=== PATIENT | female | born 1995 | race Caucasian/White ===

== ENCOUNTER → 2017-04-12 | Outpatient (CLI) | payer MEDICAID ==
[2017-04-12 10:47] LABS: CH 31.1; CHCM 32.8; HCT 40.8 % (34.0-46.0); HDW 2.03; HGB 13.3 gm/dL (11.4-16.0); MCHC 32.6 g/dL (31.0-37.0); Mean Platelet Volume 6.8; RDW 11.9 % (11.5-15.5); WBC 10.3 k/uL (3.8-10.6)
[2017-04-12 10:54] LABS: Glucose 76 mg/dL (74-99); Non-African American GFR(MDRD) >60 (>60 ml/min/1.73 sqM)
[2017-04-12 16:34] LABS: Treponemal Ab Non-Reactive (Non-Reactive)
[2017-04-13 08:05] LABS: Toxoplasma Antibody (IgG) 50.9 IU/mL (<7.2)
== END | disposition home or self-care (01) ==
LOC: LABWHC1 10:13
PROVIDERS: ATTEND Obstetrics & Gynecology
DX: O26.811 Pregnancy related exhaustion and fatigue, first trimester (principal); Z3A.00 Weeks of gestation of pregnancy not specified
CPT/HCPCS: 36415; 82565; 82947; 85027; 86762; 86777; 86778; 86780; 86850; 86900; 86901; 87340; 87390

== ENCOUNTER 2017-07-07 15:00 | Outpatient (CLI) | payer MEDICAID ==
[2017-07-07 15:56] VITALS: BP 165/86; PULSE 89; RESP 16; TEMP 98.3
--- NOTE | 2017-07-14 03:09 | P.MSEPDOC ---
Presenting Problems - Arrival Data Date of Arrival on Unit: 07/07/17 Time of Arrival on Unit: 15:00 Mode of Transport: Ambulatory - Complaint OB-Reason for Admission/Chief Complaint: Elevated Blood Pressure Comment: Pt has hx of chronic htn and is on labatalol 100mg Medical History - Information : 1 Para: 0 Term: 0 : 0 Abortions: Spontaneous or Elective: 0 Number of Living Children: 0 - Gestational Age Gestational Age by ERIK (wks/days): 21 Weeks and 2 Days - History Complications: Chronic HTN Review of Systems - Review of Systems Constitutional: No problems Breast: No problems ENT: Sore throat, Cough, Nasal congestion Cardiovascular: No problems Respiratory: No problems Gastrointestinal: No problems Genitourinary: No problems Musculoskeletal: No problems Neurological: No problems Skin: No problems Vital Signs - Temperature Temperature: 98.3 F Temperature Source: Oral - Pulse Right Sitting Pulse Rate: 89 Pulse Assessment Method: Automatic Cuff - Respirations Respiratory Rate: 16 Oxygen Delivery Method: Room Air O2 Sat by Pulse Oximetry: 100 - Blood Pressure Right Arm Blood Pressure: 165/86 Blood Pressure Mean: 112 Medical Screen Scoring (Pre) - Cervical Exam Dilation: Exam Deferred Effacement: Exam Deferred - Uterine Contractions Frequency: N/A Duration: N/A Intensity: N/A - Maternal Vital Signs Maternal Temperature: N/A Maternal Blood Pressure: N/A Signs of Preeclampsia: N/A Maternal Respirations: N/A - Pain Assessment Pain Scale Used: Numeric (1 - 10) Pain Intensity: 0 Pain Behavior: None Exhibited - Assessment Baseline FHR: 145 - Total Score Total Score (Pre): 0 - Level of Risk Level of Risk: Low (0-5) Physician Notification (Pre) - Physician Notified Physician Notified Date: 07/07/17 Physician Notified Time: 15:33 Physician/Practitioner Notifed:: Gelacio Vargas Order Received: Yes (D/c home) Disposition - Disposition OB Disposition: Discharge to home Discharge Date: 07/07/17 Discharge Time: 15:45 I agree with the RN Medical Screening Exam: Yes Risk & Benefit of care provided described in d/c instruction: Yes Diagnosis: UNSPECIFIED MATERNAL HYPERTENSION, SECOND TRIMESTER
== END 2017-07-07 15:45 | disposition home or self-care (01) ==
LOC: FBPOP 15:00
PROVIDERS: ATTEND Obstetrics & Gynecology
DX: O16.2 Unspecified maternal hypertension, second trimester (principal); Z3A.21 21 weeks gestation of pregnancy
CPT/HCPCS: 99213

== ENCOUNTER 2017-10-29 16:03 | Inpatient (IN) | payer MEDICAID ==
[2017-10-29] MEDS ORDERED: TERBUTALINE 1 MG/ML VIAL SQ PRN (16:11)
[2017-10-29] MEDS ORDERED: OXYTOCIN 10 UNIT/ML 1 ML VIAL IM PRN (16:11)
[2017-10-29] MEDS ORDERED: METHYLERGONOVINE 0.2 MG/ML 1 ML AMP IM PRN (16:11)
[2017-10-29] MEDS ORDERED: CARBOPROST TROMETHAMINE 250 MCG/ML 1 ML AMP IM PRN (16:11)
[2017-10-29] MEDS ORDERED: LIDOCAINE 1% (PF) 10 MG/ML (30 ML SDV) SQ PRN (16:11)
[2017-10-29] MEDS ORDERED: DINOPROSTONE 10 MG INSERT.ER VAGINAL ONE (16:13)
[2017-10-29 16:40] VITALS: BMI 28.4
[2017-10-30] MEDS ORDERED: AMPICILLIN 2,000 MG in SODIUM CHLORIDE 0.9% 100 ML IVPB ONE (06:00)
[2017-10-30] MEDS: LACTATED RINGERS 1,000 ML IV SCH ×4 (06:17→19:44)
[2017-10-30] MEDS: OXYTOCIN 20 UNITS/1000 ML NS 1,000 ML IV SCH ×2 (06:18→19:45)
[2017-10-30 06:21] LABS: Basophils % (A) 0 %; Eosinophils # (A) 0.1 k/uL (0-0.7); Eosinophils % (A) 1 %; HCT 41.2 % (34.0-46.0); HGB 14.2 gm/dL (11.4-16.0); Lymphocytes # (A) 2.3 k/uL (1.0-4.8); Lymphocytes % (A) 13 %; MCH 31.3 pg (25.0-35.0); MCHC 34.5 g/dL (31.0-37.0); MCV 90.7 fL (80.0-100.0); Mean Platelet Volume 6.9; Monocytes # (A) 0.7 k/uL (0-1.0); Monocytes % (A) 4 %; Neutrophils # (A) 14.7 k/uL (1.3-7.7); Neutrophils % (A) 81 %; Platelet Count 273 k/uL (150-450); RBC 4.55 m/uL (3.80-5.40); RDW 12.7 % (11.5-15.5); WBC 18.1 k/uL (3.8-10.6)
[2017-10-30 06:37] LABS: INR 0.9 (<1.2); Partial Thromboplastin Time 22.4 sec (22.0-30.0); Prothrombin Time 9.3 sec (9.0-12.0)
--- NOTE | 2017-10-30 08:53 | P.HPOB ---
History of Present Illness H&P Date: 10/30/17 Chief Complaint: Intrauterine at 37 weeks with hypertension Patient is a 21-year-old at 37-1/2 weeks gestation who ryes for induction of labor due to hypertension. She's been followed with maternal medicine throughout the gestation and their recommendation was to deliver her between 37 and 38 weeks. She was therefore admitted last night for Cervidil ripening and will plan induction today with Pitocin augmentation. Artificial rupture membranes was performed clear fluid is noted. heart tones are 130s to 140s and are reactive. Questions are answered for in detail and did include risk of failure of induction and potential need for section. Her Precis course was,. By hypertension which she is had now for apparently a couple of years without any specific cause. She's been managed on labetalol and her blood pressure up until yesterday had been stable and normal. However yesterday she did have an elevated blood pressures in the office. Plan was to always deliver her between 37 and 38 weeks however therefore she is admitted for same. Assessment intrauterine at term. Hypertension. Plan induction of labor following cervical ripening. She was currently dilated to 1-2 cm and 80% effaced Past Medical History Past Medical History: Hypertension Additional Past Medical History / Comment(s): nymph node in neck removed, non- cancerous History of Any Multi-Drug Resistant Organisms: None Reported Additional Past Surgical History / Comment(s): nymph node in neck removed, non- cancerous Past Anesthesia/Blood Transfusion Reactions: No Reported Reaction Past Psychological History: No Psychological Hx Reported Smoking Status: Never smoker Past Drug Use History: None Reported - Past Family History Mother Family Medical History: Hypertension Medications and Allergies Home Medications Medication Instructions Recorded Confirmed Type Labetalol [Trandate] 100 mg PO BID 07/07/17 10/29/17 History Allergies Allergy/AdvReac Type Severity Reaction Status Date / Time No Known Allergies Allergy Verified 07/07/17 15:01 Exam Osteopathic Statement: *. No significant issues noted on an osteopathic structural exam other than those noted in the History and Physical/Consult. - Vital Signs Vital signs: Vital Signs Temp Pulse Resp BP 10/29/17 16:30 99 F 98 16 141/92 Intake and Output 10/29/17 10/30/17 10/30/17 22:59 06:59 14:59 Intake Total 1200 600 Balance 1200 600 Intake: Oral 1200 600 Other: # Voids 3 2 Weight 89.811 kg - OBG Physical Exam Breast: both: normal (no masses) Abdomen: bowel sounds normal, no diffuse tenderness, no bruit present, no guarding noted, no hepatomegaly, no splenomegaly, no mass Vulva: both: normal Vagina: normal moisture, no discharge Cervix: no lesion, no discharge Uterus: normal size, normal contour Adnexa: both: normal Anus/Rectum: normal perianal skin, no rectal mass, no hemorrhoids, heme negative Results Result Diagrams: 10/30/17 06:10 Abnormal Lab Results - Last 24 Hours (Table) 10/30/17 Range/Units 06:10 WBC 18.1 H (3.8-10.6) k/uL Neutrophils # 14.7 H (1.3-7.7) k/uL
[2017-10-30] MEDS: AMPICILLIN 1,000 MG in SODIUM CHLORIDE 0.9% 50 ML IVPB SCH ×3 (11:30→19:52)
[2017-10-30] MEDS ORDERED: BUPIVACAINE (PF) 0.25% 30 ML VIAL ONE (11:38)
[2017-10-30] MEDS ORDERED: SODIUM CHLORIDE 0.9% 100 ML BAG ONE (11:38)
[2017-10-30] MEDS ORDERED: fentaNYL (PF) 50 MCG/ML 5 ML AMP ONE (11:38)
[2017-10-30] MEDS ORDERED: BUPIVACAINE (PF) 0.25% 25 ML, fentaNYL (PF) 200 MCG in SODIUM CHLORIDE 0.9% 71 ML EPIDURAL ONE (11:54)
[2017-10-30] MEDS: LABETALOL 100 MG TAB PO SCH ×2 (12:04→20:00)
--- NOTE | 2017-10-30 18:56 | P.PROBDLV ---
Vaginal Delivery Note - . Vaginal Delivery Note: Patient progressed to complete and pushing with spontaneous vaginal delivery of a viable male over an intact perineum. Following delivery of the head there was noted and retraction of the head onto the perineum baby was left occiput anterior position at this point gentle downward traction was attempted baby did not release the anterior shoulder therefore patient's placement very deep Madelyn position and a second attempt was made no significant change was noted during the attempt at delivering the anterior shoulder therefore I did take my left hand into posterior vagina and was able to grasp underneath the posterior shoulders axilla and while rotating in a clockwise fashion and was able to move the baby to essentially a our OT or ROP position allowing the anterior shoulder to release underneath the pubic bone and deliver transversely through the vagina without difficulty. Once baby was delivered mouth and nares were bulb suctioned and baby was placed on mother's abdomen where the umbilical cord was clamped and cut in usual fashion an nursery personnel was present to assume care. Placenta was then delivered intact and Pitocin was added to the IV. scores were 7 and 9 at one and 5 minutes respectively and the weight was 7 lbs. 12 oz. Both mother and baby are currently stable following delivery.
[2017-10-30] MEDS ORDERED: HYDROCORTISONE 2.5% RECTAL CREAM 30 GM TUBE RECTAL PRN (19:03)
[2017-10-30] MEDS ORDERED: LANOLIN CREAM 5 GM TUBE TOPICAL PRN (19:03)
[2017-10-30] MEDS ORDERED: diphenhydrAMINE 50 MG CAP PO PRN (19:03)
[2017-10-30] MEDS ORDERED: ZOLPIDEM 5 MG TAB PO PRN (19:03)
[2017-10-30] MEDS ORDERED: ACETAMINOPHEN TAB 325 MG TAB PO PRN (19:03)
[2017-10-30] MEDS ORDERED: diphenhydrAMINE 50 MG/ML 1 ML VIAL IVP PRN ×2 (19:03)
[2017-10-30] MEDS ORDERED: SIMETHICONE 80 MG CHEWABLE PO PRN (19:03)
[2017-10-30] MEDS ORDERED: MEASLES-MUMPS-RUBELLA VACC/PF 12,500 UNIT/0.5 ML VIAL SQ ONE (19:03)
[2017-10-30] MEDS ORDERED: diphenhydrAMINE 25 MG CAP PO PRN (19:03)
[2017-10-30] MEDS: BENZOCAINE/MENTHOL SPRAY 1 GM/SPRAY AEROSOL TOPICAL PRN (19:43)
[2017-10-30] MEDS: WITCH HAZEL 1 EACH MED..PAD TOPICAL PRN (19:43)
[2017-10-30] MEDS: SENNOSIDES-DOCUSATE SODIUM 1 EACH TAB PO SCH (19:58)
[2017-10-30] MEDS: IBUPROFEN 600 MG TAB PO PRN (21:52)
[2017-10-31] MEDS: IBUPROFEN 600 MG TAB PO PRN ×4 (03:55→23:53)
--- NOTE | 2017-10-31 07:18 | P.DS ---
Providers Date of admission: 10/29/17 16:03 Expected date of discharge: 10/31/17 Attending physician: Preet Peters Primary care physician: [facility] Course: Aleah is doing very well day 1. She is ambulating, voiding, and she is tolerating her diet. She voices no complaints. Vital signs are stable and afebrile. Heart regular, lungs clear, extremities without pain. Abdomen is soft uterus is firm lochia is reported light. Assessment day 1. Plan discharged home follow up with me in 6 weeks. A prescription for a breast pump is also been provided. All the questions and discharge instructions are reviewed for the patient. Patient Condition at Discharge: Good Plan - Discharge Summary Discharge Rx Participant: No New Discharge Prescriptions: No Action Labetalol [Trandate] 100 mg PO BID Discharge Medication List Labetalol [Trandate] 100 mg PO BID 07/07/17 [History] Follow up Appointment(s)/Referral(s): Preet Peters DO [Doctor of Osteopathic Medicine] - 1 Week Activity/Diet/Wound Care/Special Instructions: No heavy lifting, limit stairs and driving and pelvic rest. If any high temperatures, heavy bleeding, or severe pain call my office Discharge Disposition: HOME SELF-CARE
[2017-10-31 07:32] LABS: Basophils % (A) 0 %; Eosinophils # (A) 0.1 k/uL (0-0.7); Eosinophils % (A) 1 %; HCT 37.8 % (34.0-46.0); HGB 12.7 gm/dL (11.4-16.0); Lymphocytes # (A) 2.2 k/uL (1.0-4.8); Lymphocytes % (A) 12 %; MCH 31.2 pg (25.0-35.0); MCHC 33.6 g/dL (31.0-37.0); Mean Platelet Volume 7.7; Monocytes # (A) 0.8 k/uL (0-1.0); Monocytes % (A) 5 %; Neutrophils % (A) 82 %; Platelet Count 227 k/uL (150-450); RBC 4.06 m/uL (3.80-5.40); RDW 12.5 % (11.5-15.5); WBC 18.3 k/uL (3.8-10.6)
[2017-10-31] MEDS: SENNOSIDES-DOCUSATE SODIUM 1 EACH TAB PO SCH ×2 (08:51→21:17)
[2017-10-31] MEDS: LABETALOL 100 MG TAB PO SCH ×2 (08:55→21:17)
[2017-10-31] MEDS ORDERED: DIPH,PERTUS(ACELL)TETVAC-LF 0.5 ML VIAL IM ONE (17:59)
[2017-11-01] MEDS: IBUPROFEN 600 MG TAB PO PRN (06:26)
[2017-11-01] MEDS: WITCH HAZEL 1 EACH MED..PAD TOPICAL PRN (06:28)
[2017-11-01] MEDS: BENZOCAINE/MENTHOL SPRAY 1 GM/SPRAY AEROSOL TOPICAL PRN (06:28)
[2017-11-01] MEDS: LABETALOL 100 MG TAB PO SCH (08:00)
[2017-11-01] MEDS: SENNOSIDES-DOCUSATE SODIUM 1 EACH TAB PO SCH (08:00)
[2017-11-01 08:33] VITALS: BP 129/66; PULSE 77; RESP 16; TEMP 97.6
== END 2017-11-01 12:55 | disposition home or self-care (01) | DRG 775 ==
LOC: 4FBP 16:03
PROVIDERS: ADMIT Obstetrics & Gynecology; ATTEND Obstetrics & Gynecology
PROC: 3E0P7VZ Introduction of Hormone into Female Reproductive, Via Natural or Artificial Opening (ICD-10-PCS; principal; 2017-10-29)
PROC: 10E0XZZ Delivery of Products of Conception, External Approach (ICD-10-PCS; 2017-10-30)
PROC: 10907ZC Drainage of Amniotic Fluid, Therapeutic from Products of Conception, Via Natural or Artificial Opening (ICD-10-PCS; 2017-10-30)
PROC: 00HU33Z Insertion of Infusion Device into Spinal Canal, Percutaneous Approach (ICD-10-PCS; 2017-10-30)
PROC: 3E0R3NZ Introduction of Analgesics, Hypnotics, Sedatives into Spinal Canal, Percutaneous Approach (ICD-10-PCS; 2017-10-30)
DX: O16.4 Unspecified maternal hypertension, complicating childbirth (principal); Z37.0 Single live birth; Z3A.37 37 weeks gestation of pregnancy; Z79.899 Other long term (current) drug therapy; Z82.49 Family history of ischemic heart disease and other diseases of the circulatory system; S31.41XA Laceration without foreign body of vagina and vulva, initial encounter; O75.89 Other specified complications of labor and delivery
CPT/HCPCS: 85025; 85610; 85730; 88307; 90471; 90715

== ENCOUNTER 2017-11-04 20:16 | Inpatient (IN) | payer MEDICAID ==
[2017-11-04] MEDS ORDERED: SODIUM CHLORIDE 0.9% 1,000 ML IV STA ×2 (21:01)
[2017-11-04 21:23] LABS: Basophils % (A) 0 %; Eosinophils # (A) 0.3 k/uL (0-0.7); Eosinophils % (A) 3 %; HCT 38.6 % (34.0-46.0); HGB 13.4 gm/dL (11.4-16.0); Lymphocytes # (A) 2.3 k/uL (1.0-4.8); Lymphocytes % (A) 20 %; MCH 31.6 pg (25.0-35.0); MCHC 34.8 g/dL (31.0-37.0); MCV 90.9 fL (80.0-100.0); Mean Platelet Volume 7.4; Monocytes # (A) 0.6 k/uL (0-1.0); Monocytes % (A) 5 %; Neutrophils # (A) 8.3 k/uL (1.3-7.7); Neutrophils % (A) 71 %; Platelet Count 307 k/uL (150-450); RBC 4.25 m/uL (3.80-5.40); RDW 12.3 % (11.5-15.5); WBC 11.6 k/uL (3.8-10.6)
[2017-11-04 21:33] LABS: ALT 61 U/L (9-52); AST 35 U/L (14-36); Albumin 3.7 g/dL (3.5-5.0); Alkaline Phosphatase 102 U/L (38-126); Anion Gap 12 mmol/L; Blood Urea Nitrogen 11 mg/dL (7-17); Calcium 9.7 mg/dL (8.4-10.2); Carbon Dioxide 22 mmol/L (22-30); Chloride 109 mmol/L (98-107); Glucose 88 mg/dL (74-99); Magnesium 1.8 mg/dL (1.6-2.3); Potassium 3.8 mmol/L (3.5-5.1); Sodium 143 mmol/L (137-145); Total Bilirubin 0.2 mg/dL (0.2-1.3); Total Protein 6.3 g/dL (6.3-8.2)
[2017-11-04 21:42] LABS: Appearance,Urine Clear (Clear); Bilirubin,Urine Negative (Negative); Blood,Urine Moderate (Negative); Color,Urine Yellow; Glucose,Urine (UA) Trace (Negative); Ketones,Urine Negative (Negative); Leukocyte Esterase,Urine Negative (Negative); Mucus,Urine Rare /hpf; Nitrite,Urine Negative (Negative); PH, Urine 6.5 (5.0-8.0); Protein,Urine Trace (Negative); RBC,Urine 12 /hpf (0-5); Specific Gravity,Urine 1.016 (1.001-1.035); Squamous Epithelial Cell,Urine <1 /hpf (0-4); Urobilinogen,Urine <2.0 mg/dL (<2.0); WBC,Urine 2 /hpf (0-5)
[2017-11-04 21:56] LABS: Creatine Kinase MB 2.6 ng/mL (0.0-2.4)
[2017-11-04] MEDS ORDERED: LABETALOL 5 MG/ML VIAL MDV IVP STA ×2 (22:26→23:10)
--- NOTE | 2017-11-04 22:57 | ED ---
Recheck HPI - General Chief Complaint: Recheck/Abnormal Lab/Rx Stated Complaint: HTN sent by [facility] Time Seen by Provider: 11/04/17 20:51 Source: patient, RN notes reviewed Mode of arrival: ambulatory Limitations: no limitations - History of Present Illness Initial Comments: This is a 21-year-old female who is several days status post vaginal delivery of a baby boy who is here today for evaluation of high blood pressure. She had slight blood pressure pre-delivery was placed on labetalol she brought her child into the emergency department 2 nights ago to evaluate oliguria/an area. Patient does describe a very stressful time in the taking the child to [facility] the baby was subsequently released. She is here tonight with complaints of elevated blood pressure no headache dizziness blurry vision nausea vomiting sweats or other symptoms. She does admit to being very anxious and stressed out from the recent activities. She has been taking labetalol 100 mg twice a day. No other modifying factors she initially had no protein in her urine per her report. MD Complaint: other - Related Data Home Medications Medication Instructions Recorded Confirmed Labetalol [Trandate] 100 mg PO BID 07/07/17 11/04/17 Pnv No.95/Ferrous Fum/Folic AC 1 tab PO HS 11/04/17 11/04/17 [ Multivitamin Tablet] Allergies Allergy/AdvReac Type Severity Reaction Status Date / Time No Known Allergies Allergy Verified 11/04/17 20:40 Review of Systems ROS Statement: Those systems with pertinent positive or pertinent negative responses have been documented in the HPI. ROS Other: All systems not noted in ROS Statement are negative. Past Medical History Past Medical History: Hypertension Additional Past Medical History / Comment(s): nymph node in neck removed, non- cancerous , History of Any Multi-Drug Resistant Organisms: None Reported Additional Past Surgical History / Comment(s): nymph node in neck removed, non- cancerous, Past Anesthesia/Blood Transfusion Reactions: No Reported Reaction Past Psychological History: No Psychological Hx Reported Smoking Status: Never smoker Past Alcohol Use History: None Reported Past Drug Use History: None Reported - Past Family History Mother Family Medical History: Hypertension General Exam - General Exam Comments Initial Comments: This is a well-developed well-nourished awake alert oriented 3 female Limitations: no limitations General appearance: alert, anxious Head exam: Present: atraumatic, normocephalic, normal inspection Eye exam: Present: normal appearance, PERRL, EOMI. Absent: scleral icterus, conjunctival injection, periorbital swelling ENT exam: Present: normal exam, mucous membranes moist Neck exam: Present: normal inspection. Absent: tenderness, meningismus, lymphadenopathy Respiratory exam: Present: normal lung sounds bilaterally. Absent: respiratory distress, wheezes, rales, rhonchi, stridor Cardiovascular Exam: Present: regular rate, normal rhythm, normal heart sounds. Absent: systolic murmur, diastolic murmur, rubs, gallop, clicks GI/Abdominal exam: Present: soft, normal bowel sounds. Absent: distended, tenderness, guarding, rebound, rigid Extremities exam: Present: normal inspection, full ROM, normal capillary refill. Absent: tenderness, pedal edema, joint swelling, calf tenderness Back exam: Present: normal inspection Neurological exam: Present: alert, oriented X3, CN II-XII intact Psychiatric exam: Present: normal affect, normal mood Skin exam: Present: warm, dry, intact, normal color. Absent: rash Course Vital Signs 11/04/17 11/04/17 11/04/17 20:19 21:13 21:58 Temperature 98.3 F Pulse Rate 66 88 69 Respiratory 18 18 18 Rate Blood Pressure 192/109 162/108 151/89 O2 Sat by Pulse 99 98 98 Oximetry 11/04/17 11/05/17 22:26 00:31 Temperature Pulse Rate 68 64 Respiratory 18 18 Rate Blood Pressure 186/104 169/96 O2 Sat by Pulse 98 96 Oximetry Medical Decision Making - Medical Decision Making The patient's blood pressure is been labile in spite of IV medications she is on 100 mg twice a day of labetalol I did discuss the case with Dr. Peters as well as with Ezra Ba who is covering for Dr. Parul hernandez Patient will be admitted for inpatient evaluation and blood pressure control. - Lab Data Result diagrams: 11/04/17 21:08 11/04/17 21:08 Lab Results 11/04/17 11/04/17 11/04/17 Range/Units 21:08 21:08 21:08 WBC 11.6 H (3.8-10.6) k/uL RBC 4.25 (3.80-5.40) m/uL Hgb 13.4 (11.4-16.0) gm/dL Hct 38.6 (34.0-46.0) % MCV 90.9 (80.0-100.0) fL MCH 31.6 (25.0-35.0) pg MCHC 34.8 (31.0-37.0) g/dL RDW 12.3 (11.5-15.5) % Plt Count 307 (150-450) k/uL Neutrophils % 71 % Lymphocytes % 20 % Monocytes % 5 % Eosinophils % 3 % Basophils % 0 % Neutrophils # 8.3 H (1.3-7.7) k/uL Lymphocytes # 2.3 (1.0-4.8) k/uL Monocytes # 0.6 (0-1.0) k/uL Eosinophils # 0.3 (0-0.7) k/uL Basophils # 0.0 (0-0.2) k/uL Sodium 143 (137-145) mmol/L Potassium 3.8 (3.5-5.1) mmol/L Chloride 109 H (98-107) mmol/L Carbon Dioxide 22 (22-30) mmol/L Anion Gap 12 mmol/L BUN 11 (7-17) mg/dL Creatinine 0.50 L (0.52-1.04) mg/dL Est GFR (CKD-EPI)AfAm >90 (>60 ml/min/1.73 sqM) Est GFR (CKD-EPI)NonAf >90 (>60 ml/min/1.73 sqM) Glucose 88 (74-99) mg/dL Calcium 9.7 (8.4-10.2) mg/dL Magnesium 1.8 (1.6-2.3) mg/dL Total Bilirubin 0.2 (0.2-1.3) mg/dL AST 35 (14-36) U/L ALT 61 H (9-52) U/L Alkaline Phosphatase 102 (38-126) U/L Total Creatine Kinase 125 (30-135) U/L CK-MB (CK-2) 2.6 H* (0.0-2.4) ng/mL CK-MB (CK-2) Rel Index 2.1 Total Protein 6.3 (6.3-8.2) g/dL Albumin 3.7 (3.5-5.0) g/dL Urine Color Urine Appearance (Clear) Urine pH (5.0-8.0) Ur Specific Steele (1.001-1.035) Urine Protein (Negative) Urine Glucose (UA) (Negative) Urine Ketones (Negative) Urine Blood (Negative) Urine Nitrite (Negative) Urine Bilirubin (Negative) Urine Urobilinogen (<2.0) mg/dL Ur Leukocyte Esterase (Negative) Urine RBC (0-5) /hpf Urine WBC (0-5) /hpf Ur Squamous Epith Cells (0-4) /hpf Urine Mucus (None) /hpf 11/04/17 Range/Units 21:30 WBC (3.8-10.6) k/uL RBC (3.80-5.40) m/uL Hgb (11.4-16.0) gm/dL Hct (34.0-46.0) % MCV (80.0-100.0) fL MCH (25.0-35.0) pg MCHC (31.0-37.0) g/dL RDW (11.5-15.5) % Plt Count (150-450) k/uL Neutrophils % % Lymphocytes % % Monocytes % % Eosinophils % % Basophils % % Neutrophils # (1.3-7.7) k/uL Lymphocytes # (1.0-4.8) k/uL Monocytes # (0-1.0) k/uL Eosinophils # (0-0.7) k/uL Basophils # (0-0.2) k/uL Sodium (137-145) mmol/L Potassium (3.5-5.1) mmol/L Chloride (98-107) mmol/L Carbon Dioxide (22-30) mmol/L Anion Gap mmol/L BUN (7-17) mg/dL Creatinine (0.52-1.04) mg/dL Est GFR (CKD-EPI)AfAm (>60 ml/min/1.73 sqM) Est GFR (CKD-EPI)NonAf (>60 ml/min/1.73 sqM) Glucose (74-99) mg/dL Calcium (8.4-10.2) mg/dL Magnesium (1.6-2.3) mg/dL Total Bilirubin (0.2-1.3) mg/dL AST (14-36) U/L ALT (9-52) U/L Alkaline Phosphatase (38-126) U/L Total Creatine Kinase (30-135) U/L CK-MB (CK-2) (0.0-2.4) ng/mL CK-MB (CK-2) Rel Index Total Protein (6.3-8.2) g/dL Albumin (3.5-5.0) g/dL Urine Color Yellow Urine Appearance Clear (Clear) Urine pH 6.5 (5.0-8.0) Ur Specific Steele 1.016 (1.001-1.035) Urine Protein Trace H (Negative) Urine Glucose (UA) Trace H (Negative) Urine Ketones Negative (Negative) Urine Blood Moderate H (Negative) Urine Nitrite Negative (Negative) Urine Bilirubin Negative (Negative) Urine Urobilinogen <2.0 (<2.0) mg/dL Ur Leukocyte Esterase Negative (Negative) Urine RBC 12 H (0-5) /hpf Urine WBC 2 (0-5) /hpf Ur Squamous Epith Cells <1 (0-4) /hpf Urine Mucus Rare H (None) /hpf - EKG Data -: EKG Interpreted by Me EKG shows normal: sinus rhythm (Normal sinus rhythm of 72. Interval 120 QRS duration 72 QT since QTC of 364/[address]-T wave changes) Disposition Clinical Impression: Labile hypertension, Status post normal vaginal delivery Disposition: ADMITTED IP TO THIS HOSP Condition: Stable Referrals: Perry Nicole DO [Primary Care Provider] - 1-2 days
[2017-11-05] MEDS ORDERED: ACETAMINOPHEN TAB 325 MG TAB PO PRN (00:57)
[2017-11-05] MEDS ORDERED: NALOXONE 0.4 MG/ML 1 ML VIAL IV PRN (00:57)
[2017-11-05 02:02] VITALS: BMI 25.8
--- NOTE | 2017-11-05 07:58 | P.OBCN ---
History of Present Illness Consult date: 11/05/17 Requesting physician: Fang Perez Reason for consult: gestational hypertension Chief complaint: High blood pressure History of present illness: Roma is a 21-year-old female well known to me following her course and delivery last Saturday. She relates that through the weekend her son had some problems with urination and there was some complicated between she and the endless track vehicle mechanic and ultimately after bring the baby to the emergency room here the baby was sent to [facility] for evaluation. While she was at [facility] she had some breast engorgement and pain and they did check her blood pressures and were noted to be high proxy 160/100. Advised her that time to go to the [place] room [place] but she refused. Once baby was discharged I was notified by the endless track vehicle mechanic done there that she had some blood pressure problems so I did speak with her over the phone and she was advised to take her medications directed for her blood pressure and recheck her blood pressure after she got home so we could evaluate whether not some of the blood pressure issues were from anxiety or not. Her sister is an RN and checked her blood pressure home and her blood pressure home was 170/110 I was notified of this by the patient and she was sent into the emergency room. In the emergency room labs were done and see her blood pressures were done. Change in her labetalol dose has been initiated. The big concern from an obstetrical/gynecologic standpoint is that she could have superimposed preeclampsia. In reviewing labs is noted she had trace protein which would not be unusual and a slight elevation in her ALTs but this also could be simply from having the baby 5 days ago. She denies headache, no epigastric pain, and no visual changes. Deep tendon reflexes were 1+ out of 4 there is no other signs or symptoms of preeclampsia and all that remained a possibility it seems less likely after thorough evaluation. Her vital signs are now stable with only slight elevation in blood pressure. Will await medicines final recommendations with her blood pressure and likely have her see Dr. Nicole for reevaluation her blood pressures later this week. All other questions are answered for both she and her mother this time currently was seeing her this morning she is stable. Past Medical History Past Medical History: Hypertension Additional Past Medical History / Comment(s): nymph node in neck removed, non- cancerous , History of Any Multi-Drug Resistant Organisms: None Reported Additional Past Surgical History / Comment(s): nymph node in neck removed, non- cancerous, Past Anesthesia/Blood Transfusion Reactions: No Reported Reaction Past Psychological History: No Psychological Hx Reported Smoking Status: Never smoker Past Alcohol Use History: None Reported Past Drug Use History: None Reported - Past Family History Mother Family Medical History: Hypertension Medications and Allergies Home Medications Medication Instructions Recorded Confirmed Type Labetalol [Trandate] 100 mg PO BID 07/07/17 11/04/17 History Pnv No.95/Ferrous Fum/Folic AC 1 tab PO HS 11/04/17 11/04/17 History [ Multivitamin Tablet] Allergies Allergy/AdvReac Type Severity Reaction Status Date / Time No Known Allergies Allergy Verified 11/04/17 20:40 Exam Osteopathic Statement: *. No significant issues noted on an osteopathic structural exam other than those noted in the History and Physical/Consult. - Vital Signs Vital signs: Vital Signs Temp Pulse Pulse Resp BP BP Pulse Ox 11/05/17 04:13 96.7 F L 67 16 148/93 98 11/05/17 01:57 96.6 F L 67 16 138/96 98 11/05/17 00:58 98.0 F 67 18 143/71 97 11/05/17 00:31 64 18 169/96 96 11/04/17 22:26 68 18 186/104 98 11/04/17 21:58 69 18 151/89 98 11/04/17 21:13 88 18 162/108 98 11/04/17 20:19 98.3 F 66 18 192/109 99 Intake and Output 11/04/17 11/05/17 11/05/17 22:59 06:59 14:59 Other: Weight 83.325 kg 81.647 kg - OBG Physical Exam Breast: Bilateral breast engorgement is noted better she reports that this is better over the last 12 hours. If needed we can consult professionals Abdomen: bowel sounds normal, no diffuse tenderness, no bruit present, no guarding noted, no hepatomegaly, no splenomegaly, no mass Uterus: normal size, normal contour Results Result Diagrams: 11/04/17 21:08 11/04/17 21:08 Abnormal Lab Results - Last 24 Hours (Table) 11/04/17 11/04/17 11/04/17 Range/Units 21:08 21:08 21:08 WBC 11.6 H (3.8-10.6) k/uL Neutrophils # 8.3 H (1.3-7.7) k/uL Chloride 109 H (98-107) mmol/L Creatinine 0.50 L (0.52-1.04) mg/dL ALT 61 H (9-52) U/L CK-MB (CK-2) 2.6 H* (0.0-2.4) ng/mL Urine Protein (Negative) Urine Glucose (UA) (Negative) Urine Blood (Negative) Urine RBC (0-5) /hpf Urine Mucus (None) /hpf 11/04/17 Range/Units 21:30 WBC (3.8-10.6) k/uL Neutrophils # (1.3-7.7) k/uL Chloride (98-107) mmol/L Creatinine (0.52-1.04) mg/dL ALT (9-52) U/L CK-MB (CK-2) (0.0-2.4) ng/mL Urine Protein Trace H (Negative) Urine Glucose (UA) Trace H (Negative) Urine Blood Moderate H (Negative) Urine RBC 12 H (0-5) /hpf Urine Mucus Rare H (None) /hpf
[2017-11-05] MEDS: LABETALOL 200 MG TAB PO SCH ×2 (08:53→21:10)
[2017-11-05] MEDS ORDERED: ZOLPIDEM 5 MG TAB PO PRN (16:45)
[2017-11-05] MEDS: NIFEdipine XL 30 MG TAB.ER.24 PO SCH (17:06)
[2017-11-05] MEDS ORDERED: PRENATAL VIT-IRON-FOLIC ACID 1 EACH CAP PO SCH (21:00)
--- NOTE | 2017-11-05 23:24 | P.HPIM ---
History of Present Illness H&P Date: 11/05/17 Chief Complaint: Elevated blood pressure Patient is a 21-year-old female with a known history of hypertension and normal vaginal delivery on 10/30/2017 came to ER for evaluation of high blood pressure. Patient was at [facility] for evaluation of baby where she did get her blood pressure checkup and was found to have elevated with SBP greater than 160. Patient was advised to hospital for further evaluation. Patient had blood pressure cuff at home by her sister who is an RN and phosphorus found to have SBP greater than 170. Patient was advised by her OB/ [employer] physician to come to ER for possible superimposed preeclampsia. Patient otherwise denied any headache dizziness or blurry vision. Patient does have slightly elevated ALT otherwise LFTs within normal limits. Normal platelet count and hemoglobin. Patient does have a history of hypertension prior to her . Patient was taking atenolol before. Atenolol has been changed to labetalol 100 mg twice a day during . Her blood pressure is usually well controlled. Patient was given a dose of IV labetalol 1 while in the ER. Patient was started on increased dose of labetalol 200 mg twice a day in the hospital. Blood pressure is fairly controlled with SBP in 140s now. Otherwise patient denied any complaints of chest pain or shortness of breath. No leg swelling. No nausea vomiting or abdominal pain. Denied any dysuria or gross hematuria. Denied any other complaints at this time. Patient says that she has been very stressful recently in taking her changed to [facility] and wasn't able to sleep very well last few days. EKG showed sinus rhythm with sinus arrhythmia Review of Systems Constitutional: Patient denies any fever or chills . No generalized weakness or weight loss. Abdomen: Patient denied nausea vomiting and diarrhea and abdominal pain. Cardiovascular: Patient denies any chest pain or short of breath no palpitations. Respiratory: patient denied any cough is from production. No shortness of breath Neurologic: Patient denied any numbness or tingling headache. Musculoskeletal: Patient denies any complaints of joint swelling or deformity. Skin: Negative Psychiatric: Negative Endocrine: No heat or cold intolerance. No recent weight gain. Genitourinary: No dysuria or hematuria. All other 14 point ROS negative except the above Past Medical History Past Medical History: Hypertension Additional Past Medical History / Comment(s): nymph node in neck removed, non- cancerous , History of Any Multi-Drug Resistant Organisms: None Reported Additional Past Surgical History / Comment(s): nymph node in neck removed, non- cancerous, Past Anesthesia/Blood Transfusion Reactions: No Reported Reaction Past Psychological History: No Psychological Hx Reported Smoking Status: Never smoker Past Alcohol Use History: None Reported Past Drug Use History: None Reported - Past Family History Mother Family Medical History: Hypertension Medications and Allergies Home Medications Medication Instructions Recorded Confirmed Type Labetalol [Trandate] 100 mg PO BID 07/07/17 11/04/17 History Pnv No.95/Ferrous Fum/Folic AC 1 tab PO HS 11/04/17 11/04/17 History [ Multivitamin Tablet] Allergies Allergy/AdvReac Type Severity Reaction Status Date / Time No Known Allergies Allergy Verified 11/04/17 20:40 Physical Exam Vitals: Vital Signs Temp Pulse Pulse Resp BP BP BP 11/05/17 15:00 98.0 F 67 18 173/106 11/05/17 11:46 61 18 161/91 11/05/17 10:30 74 18 166/99 11/05/17 10:00 146/107 11/05/17 08:45 18 11/05/17 08:13 98.4 F 69 20 150/98 11/05/17 04:13 96.7 F L 67 16 148/93 11/05/17 01:57 96.6 F L 67 16 138/96 11/05/17 00:58 98.0 F 67 18 143/71 11/05/17 00:31 64 18 169/96 11/04/17 22:26 68 18 186/104 11/04/17 21:58 69 18 151/89 11/04/17 21:13 88 18 162/108 11/04/17 20:19 98.3 F 66 18 192/109 Pulse Ox 11/05/17 15:00 11/05/17 11:46 11/05/17 10:30 11/05/17 10:00 11/05/17 08:45 11/05/17 08:13 98 11/05/17 04:13 98 11/05/17 01:57 98 11/05/17 00:58 97 11/05/17 00:31 96 11/04/17 22:26 98 11/04/17 21:58 98 11/04/17 21:13 98 11/04/17 20:19 99 Intake and Output 11/05/17 11/05/17 11/05/17 06:59 14:59 22:59 Intake Total 1200 Balance 1200 Intake: Oral 1200 Other: # Voids 3 Weight 81.647 kg PHYSICAL EXAMINATION: Patient is lying in the bed comfortably, no acute distress, awake alert and oriented.. HEENT: Normocephalic. Neck is supple. Pupils reactive. Nostrils clear. Oral cavity is moist. Ears reveal no drainage. Neck reveals no JVD, carotid bruits, or thyromegaly. CHEST EXAMINATION: Trachea is central. Symmetrical expansion. Lung verduzco clear to auscultation and percussion. CARDIAC: Normal S1, S2 with no gallops. No murmurs ABDOMEN: Soft. Bowel sounds normal. No organomegaly. No abdominal bruits. Extremities: reveal no edema. No clubbing or cyanosis Neurologically awake, alert, oriented x3 with well-coordinated movements. No focal deficits noted Skin: No rash or skin lesions. Psychiatric: Coperative. Nonsuicidal Musculoskeletal: No joint swelling or deformity. Normal range of motion. Results CBC & Chem 7: 11/04/17 21:08 11/04/17 21:08 Labs: Abnormal Lab Results - Last 24 Hours (Table) 11/04/17 11/04/17 11/04/17 Range/Units 21:08 21:08 21:08 WBC 11.6 H (3.8-10.6) k/uL Neutrophils # 8.3 H (1.3-7.7) k/uL Chloride 109 H (98-107) mmol/L Creatinine 0.50 L (0.52-1.04) mg/dL ALT 61 H (9-52) U/L CK-MB (CK-2) 2.6 H* (0.0-2.4) ng/mL Urine Protein (Negative) Urine Glucose (UA) (Negative) Urine Blood (Negative) Urine RBC (0-5) /hpf Urine Mucus (None) /hpf 11/04/17 Range/Units 21:30 WBC (3.8-10.6) k/uL Neutrophils # (1.3-7.7) k/uL Chloride (98-107) mmol/L Creatinine (0.52-1.04) mg/dL ALT (9-52) U/L CK-MB (CK-2) (0.0-2.4) ng/mL Urine Protein Trace H (Negative) Urine Glucose (UA) Trace H (Negative) Urine Blood Moderate H (Negative) Urine RBC 12 H (0-5) /hpf Urine Mucus Rare H (None) /hpf Thrombosis Risk Factor Assmnt - DVT/VTE Prophylaxis DVT/VTE Prophylaxis: Mechanical Prophylaxis ordered Assessment and Plan Assessment: Uncontrolled hypertension in . Unlikely preeclampsia. Patient is symptomatic with no complaints of headache blurry vision or dizziness and normal LFTs Normal vaginal delivery on 10/30/2017 Hypertension prior to Microscopic hematuria Plan: Patient will be continued on labetalol 200 mg twice daily. She was given IV labetalol 1 in the ER. Blood pressure is improving at this time. We will add nifedipine XL. Blood pressure is not well controlled. Continue to monitor the patient closely. Patient was seen by [facility]. Further recommendations based on the clinical course. Time with Patient: Greater than 30
--- NOTE | 2017-11-06 07:40 | P.PN ---
Progress Note - Text Progress Note Date: 11/06/17 Patient overall is doing better today. Her blood pressures morning was in the one teens over 60s which is significant improvement over yesterday. We'll defer to your medical management from obstetric standpoint she is stable.
[2017-11-06 08:10] VITALS: PULSE 85; RESP 18; TEMP 98.2
[2017-11-06] MEDS: NIFEdipine XL 30 MG TAB.ER.24 PO SCH (08:53)
[2017-11-06] MEDS: LABETALOL 200 MG TAB PO SCH (08:53)
[2017-11-06 14:04] VITALS: BP 158/88
== END 2017-11-06 13:35 | disposition home or self-care (01) | DRG 776 ==
LOC: EC 20:16 → 4FBP 11-05 00:58 → OBSVTOIN 11-05 00:58
PROVIDERS: ADMIT Internal Medicine; ATTEND Internal Medicine
DX: O10.93 Unspecified pre-existing hypertension complicating the puerperium (principal); R31.29 Other microscopic hematuria; F41.9 Anxiety disorder, unspecified; Z82.49 Family history of ischemic heart disease and other diseases of the circulatory system
CPT/HCPCS: 36415; 80053; 81001; 82550; 82553; 83735; 85025; 93005; 96361; 96374; 99284

== ENCOUNTER → 2021-05-02 | Outpatient (CLI) | payer MEDICAID, OTHER | END | disposition home or self-care (01) | LOC: LABWHC1 08:52 | PROVIDERS: ATTEND Emergency Medicine | DX: U07.1 COVID-19 (principal) | CPT/HCPCS: 87635 ==

== ENCOUNTER → 2022-03-27 | Outpatient (CLI) | payer MEDICAID | END | disposition home or self-care (01) | LOC: LABWHC1 11:49 | PROVIDERS: ATTEND Family Medicine | DX: N94.4 Primary dysmenorrhea (principal) | CPT/HCPCS: 36415; 84702 ==

== ENCOUNTER → 2022-12-19 | Outpatient (CLI) | payer MEDICAID ==
[2022-12-19 14:59] LABS: Basophils # (A) 0.04 X 10*3/uL (0.00-0.10); Basophils % (A) 0.5 %; Eosinophils # (A) 0.08 X 10*3/uL (0.04-0.35); HCT 41.3 % (37.2-46.3); HGB 13.4 d/dL (12.0-15.0); Lymphocytes # (A) 2.24 X 10*3/uL (0.90-5.00); Lymphocytes % (A) 28.2 %; MCH 28.8 pg (27.0-32.0); MCHC 32.4 d/dL (32.0-37.0); MCV 88.8 FL (80.0-97.0); Mean Platelet Volume 10.3 FL (9.5-12.2); Monocytes % (A) 6.3 %; NRBC Per 100 WBC 0 X 10*3/uL (0.00-0.01); Neutrophils # (A) 5.06 X 10*3/uL (1.80-7.70); Neutrophils % (A) 63.9 %; Platelet Count 374 X 10*3/uL (140-440); RBC 4.65 X 10*6/uL (4.10-5.20); RDW 12.7 % (11.5-14.5); WBC 7.93 X 10*3/uL (4.50-10.00)
[2022-12-19 16:04] LABS: BUN/Creat Ratio 17.43 Ratio (12.00-20.00); Blood Urea Nitrogen 12.2 mg/dL (9.0-27.0); Chloride 103 mmol/L (96-109); Chol/HDL Ratio 3.65 Ratio; Glucose 79 mg/dL (70-110); LDL Cholesterol,Calculated 127.9 mg/dL (0.0-131.0); Potassium 4.8 mmol/L (3.5-5.5); Sodium 140 mmol/L (135-145)
[2022-12-19 16:05] LABS: ALT 20 U/L (8-44); AST 23 U/L (13-35); Albumin 4.5 d/dL (3.8-4.9); Albumin/Globulin Ratio 2.05 Ratio (1.60-3.17); Alkaline Phosphatase 67 U/L (41-126); Calcium 9.9 mg/dL (8.7-10.3); Carbon Dioxide 25.7 mmol/L (21.6-31.8); Globulin 2.2 d/dL (1.6-3.3); Total Bilirubin 0.4 mg/dL (0.3-1.2); Total Protein 6.7 d/dL (6.2-8.2)
== END | disposition home or self-care (01) ==
LOC: LABWHC1 07:45
PROVIDERS: ATTEND Family Medicine
DX: Z00.00 Encounter for general adult medical examination without abnormal findings (principal); Z13.220 Encounter for screening for lipoid disorders; L70.0 Acne vulgaris; R53.83 Other fatigue
CPT/HCPCS: 36415; 80053; 80061; 82306; 84443; 85025